=== PATIENT | female | born 1985 | race African-American/Black ===

== ENCOUNTER 2017-01-31 01:03 | Emergency (ER) | payer OTHER ==
[~2017-01-31] VITALS: Ht 162.6 cm; Wt 53.3 kg
[~2017-01-31 01:03] MED LIST: ERYTHROMYCIN O3.5 GM RIGHT EYE; LEVAQUIN500 MG PO; LORTAB 5-325 M1 EACH PO; MOTRIN600 MG PO; NAPROSYN500 MG PO; NO MEDS; NOHOMEMEDS; NORCO 7.5/321 TABLET PO; PREDNISONE20 MG PO; TAMIFLU75 MG PO; TESSALON PERLE100 MG PO; VENTOLIN HFA18 GM IH; VITAMIN D5000 UNIT PO
[2017-01-31] MEDS ORDERED: NORCO 5/3251 TABLET PO (02:19)
[2017-01-31 02:30] VITALS: BP 147/106
[2017-02-01] MEDS ORDERED: PROPRANOLOL HCL10 MG PO (06:24)
[2017-02-01] MEDS ORDERED: METHIMAZOLE10 MG PO (06:24)
== END 2017-01-31 02:46 | disposition home or self-care (01) ==
LOC: EME 01:03
DX: M54.2 Cervicalgia (principal); R51 Headache; E05.90 Thyrotoxicosis, unspecified without thyrotoxic crisis or storm
CPT/HCPCS: 99281; 99284

== ENCOUNTER 2017-02-01 03:33 | Emergency (ER) | payer OTHER ==
[~2017-02-01] VITALS: Ht 160 cm; Wt 53.4 kg
[~2017-02-01 03:33] MED LIST changes: +NORCO 5/3251 TABLET PO
[2017-02-01 04:14] LABS: EOSINOPHIL (%) 1.2 % (0-5); EOSINOPHIL COUNT 0.1 K/uL (0-0.3); HEMATOCRIT 32.4 % (36.0-46.0); IMMATURE GRANULOCYTE (%) 0.1 % (0.0-0.7); INSTRUMENT ABS NEUTROPHIL CT 3.3 K/uL; LYMPHOCYTE COUNT 3.4 K/uL (1.0-2.8); MCHC 30.6 G/DL (30.0-36.0); MCV 72.2 FL (83-99); MEAN PLAT.VOLUME 10.8 uM^3 (9.5-12.4); MONOCYTE (%) 8.8 % (3-12); MONOCYTE COUNT 0.7 K/uL (0-0.8); NEUTROPHIL (%) 44.5 % (45-76); NEUTROPHIL COUNT 3.3 K/uL (1.8-6.4); PLATELET COUNT 270 K/uL (156-360); RBC DIS.WIDTH-CV 16.2 % (11.8-14.6); RBC DIS.WIDTH-SD 41.8 % (39-53); RED BLOOD COUNT 4.49 M/uL (3.80-5.20); WHITE BLOOD COUNT 7.5 K/uL (4.1-10.2)
[2017-02-01 04:18] LABS: CHLORIDE 109 mEq/L (99-109); POTASSIUM 3.2 mEq/L (3.7-5.4); SODIUM 141 mEq/L (136-147)
[2017-02-01 04:19] LABS: D-DIMER ELISA 0.43 mg/L FEU (< 0.57)
[2017-02-01 04:21] LABS: GLUCOSE 90 mg/dL (70-99)
[2017-02-01 04:22] LABS: ANION GAP 10 MEQ/L (2-14)
[2017-02-01 04:23] LABS: TOTAL BILIRUBIN 0.4 mg/dL (0.0-1.0)
[2017-02-01 04:24] LABS: ALKALINE PHOSPHATASE 262 IU/L (3-129); GFR ESTIMATE (CALCULATED) > 59 mL/min/
[2017-02-01 04:25] LABS: UREA NITROGEN (BUN) 10 mg/dL (9-23)
[2017-02-01 04:30] LABS: TROP-I INTERPRETATION NEGATIVE; TROPONIN-I < 0.01 ng/mL (0.0-0.30)
[2017-02-01] MEDS ORDERED: METHIMAZOLE10 MG PO (06:24)
[2017-02-01] MEDS ORDERED: PROPRANOLOL HCL10 MG PO (06:24)
[2017-02-01 06:40] VITALS: BP 109/70
== END 2017-02-01 06:43 | disposition home or self-care (01) ==
LOC: EME 03:33
PROVIDERS: Emergency Medicine
DX: E05.90 Thyrotoxicosis, unspecified without thyrotoxic crisis or storm (principal); R51 Headache; R06.02 Shortness of breath
CPT/HCPCS: 71020; 80053; 83880; 84439; 84443; 84481; 84484; 85025; 85379; 93005; 99281; 99285; J1100; J1200; J2765; J7030

== ENCOUNTER 2017-09-15 13:30 | Emergency (ER) | payer OTHER ==
[~2017-09-15] VITALS: Ht 160 cm; Wt 56.2 kg
[~2017-09-15 13:30] MED LIST changes: +METHIMAZOLE10 MG PO; +PROPRANOLOL HCL10 MG PO
[2017-09-15 16:24] LABS: EOSINOPHIL (%) 0.7 % (0-5); EOSINOPHIL COUNT 0.1 K/uL (0-0.3); HEMATOCRIT 33.2 % (36.0-46.0); IMMATURE GRANULOCYTE (%) 0.1 % (0.0-0.7); LYMPHOCYTE COUNT 2.3 K/uL (1.0-2.8); MCV 74.3 FL (83-99); MEAN PLAT.VOLUME 11.1 uM^3 (9.5-12.4); MONOCYTE (%) 6.7 % (3-12); MONOCYTE COUNT 0.5 K/uL (0-0.8); NEUTROPHIL (%) 58.5 % (45-76); PLATELET COUNT 250 K/uL (156-360); RBC DIS.WIDTH-CV 16.9 % (11.8-14.6); RBC DIS.WIDTH-SD 45.3 % (39-53); RED BLOOD COUNT 4.47 M/uL (3.80-5.20); WHITE BLOOD COUNT 6.9 K/uL (4.1-10.2)
[2017-09-15 16:26] LABS: CHLORIDE 107 mEq/L (99-109); POTASSIUM 3.6 mEq/L (3.7-5.4); SODIUM 139 mEq/L (136-147)
[2017-09-15 16:27] LABS: GLUCOSE 92 mg/dL (70-99)
[2017-09-15 16:29] LABS: ANION GAP 6 MEQ/L (2-14)
[2017-09-15 16:31] LABS: GFR ESTIMATE (CALCULATED) > 59 mL/min/
[2017-09-15 16:32] LABS: UREA NITROGEN (BUN) 10 mg/dL (9-23)
[2017-09-15 16:39] LABS: ADD MIUA? NO; BILIRUBIN NEGATIVE; BLOOD NEGATIVE; COLOR YELLOW ((YELLOW)); GLUCOSE (STRIP) NEGATIVE; KETONES NEGATIVE; LEUKOCYTES NEGATIVE; NITRITE NEGATIVE; PROTEIN (STRIP) 30; SPECIFIC GRAVITY 1.026 (1.000-1.030)
[2017-09-15 16:39] LABS: QUANTITATIVE HCG < 4.0 MIU/ML
[2017-09-15 18:04] VITALS: BP 122/84
== END 2017-09-15 18:17 | disposition home or self-care (01) ==
LOC: EME 13:30
PROVIDERS: Physician Assistant
PROC: 0T9B70Z Drainage of Bladder with Drainage Device, Via Natural or Artificial Opening (ICD-10-PCS; principal; 2017-09-15)
DX: R33.9 Retention of urine, unspecified (principal); T50.995A Adverse effect of other drugs, medicaments and biological substances, initial encounter; E05.90 Thyrotoxicosis, unspecified without thyrotoxic crisis or storm; Z88.0 Allergy status to penicillin; Z88.5 Allergy status to narcotic agent
CPT/HCPCS: 80048; 81003; 84702; 85025; 99281; 99284

== ENCOUNTER 2018-03-25 10:05 | Emergency (ER) | payer OTHER ==
[~2018-03-25] VITALS: Ht 160 cm; Wt 54.2 kg
[2018-03-25 12:09] LABS: HEMATOCRIT 31.2 % (36.0-46.0); MCH 25.4 PG (29.0-34.0); MCHC 32.1 G/DL (30.0-36.0); MCV 79.4 FL (83-99); PLATELET COUNT 260 K/uL (156-360); RBC DIS.WIDTH-CV 14.8 % (11.8-14.6); RED BLOOD COUNT 3.93 M/uL (3.80-5.20)
[2018-03-25 12:18] LABS: CHLORIDE 106 mEq/L (99-109); POTASSIUM 3.8 mEq/L (3.7-5.4); SODIUM 138 mEq/L (136-147)
[2018-03-25 12:19] LABS: GLUCOSE 91 mg/dL (70-99)
[2018-03-25 12:23] LABS: CREATININE 0.9 mg/dL (0.6-1.3); GFR ESTIMATE (CALCULATED) > 59 mL/min/
[2018-03-25 12:24] LABS: UREA NITROGEN (BUN) 14 mg/dL (9-23)
[2018-03-25] MEDS ORDERED: SKELAXIN800 MG PO (13:15)
[2018-03-25] MEDS ORDERED: LIDODERM 5% P1 PATCH TD (13:15)
[2018-03-25] MEDS ORDERED: PERCOCET 5/31 TABLET PO (13:15)
[2018-03-25 14:03] VITALS: BP 145/97
== END 2018-03-25 14:04 | disposition home or self-care (01) ==
LOC: EME 10:05
PROVIDERS: Nurse Practitioner Family
DX: M62.838 Other muscle spasm (principal); D64.9 Anemia, unspecified; E89.0 Postprocedural hypothyroidism; M25.512 Pain in left shoulder; M79.602 Pain in left arm; M54.2 Cervicalgia
CPT/HCPCS: 72040; 73030; 80048; 82330; 85027; 99281; 99284